=== PATIENT | male | born 1955 | race Caucasian/White ===

== ENCOUNTER 2017-05-30 23:40 | Emergency (ER) | payer MEDICAID, OTHER ==
[~2017-05-30] VITALS: Ht 203.2 cm; Wt 145.4 kg
[~2017-05-30 23:40] MED LIST: AMOX500C2 PO; HYDR25TA PO; IBUP-2279 PO; TERA10CA4 PO
[2017-05-30] MEDS ORDERED: BACTDSB PO (23:43)
[2017-05-30] MEDS ORDERED: PRED20 PO (23:43)
[2017-05-30] MEDS ORDERED: AMLO-511 PO (23:43)
[2017-05-30] MEDS ORDERED: LISI-662 PO (23:43)
[2017-05-31] MEDS ORDERED: BACITRACIN 0.9 GM PACKET OINTMENT TP ONE (01:30)
[2017-05-31] MEDS ORDERED: PERTUSS(ACELL),DIPH,TET VAC/PF 0.5 ML VIAL IM ONE (01:30)
[2017-05-31] MEDS ORDERED: BUPIVACAINE HCL/PF 0.25% 30 ML VIAL INJ ONE (01:30)
[2017-05-31 03:04] VITALS: BP 128/78
== END 2017-05-31 03:06 | disposition home or self-care (01) ==
LOC: EMS 23:41
DX: S81.812A Laceration without foreign body, left lower leg, initial encounter (principal); I10 Essential (primary) hypertension; J44.9 Chronic obstructive pulmonary disease, unspecified; W45.8XXA Other foreign body or object entering through skin, initial encounter; Y93.01 Activity, walking, marching and hiking; Y92.091 Bathroom in other non-institutional residence as the place of occurrence of the external cause; Y99.8 Other external cause status
CPT/HCPCS: 12004; 90471; 90715; 99283; J3490